=== PATIENT | female | born 1965 | race Caucasian/White ===

== ENCOUNTER 2019-01-02 14:28 | Emergency (ER) | payer OTHER ==
[~2019-01-02] VITALS: Ht 160 cm; Wt 100.7 kg
[~2019-01-02 14:28] MED LIST: ALBU90OI INH; AMOX500 PO; Albuterol2.5 MG/0.5 INH; BENZ100A PO; Cleocin HCl150 MG PO; ESTR2 PO; FISH1000 PO; Hair, Skin & N1 EACH PO; LOSA25 PO; Monodox100 MG PO; OMEPRAZOLE MAGN20 MG PO; OXYB5 PO; PRED10 PO; PROCODE120 PO; Pepcid40 MG PO; Prednisone20 MG PO; QVAR7.3 G1 IH; ZIPR20 PO; Zithromax250 MG PO
== END 2019-01-02 15:38 | disposition home or self-care (01) ==
LOC: ER 14:28
DX: S63.501A Unspecified sprain of right wrist, initial encounter (principal); E11.9 Type 2 diabetes mellitus without complications; J43.9 Emphysema, unspecified; F17.210 Nicotine dependence, cigarettes, uncomplicated; Z88.0 Allergy status to penicillin; Z88.8 Allergy status to other drugs, medicaments and biological substances; Z79.52 Long term (current) use of systemic steroids; Z79.899 Other long term (current) drug therapy; W18.39XA Other fall on same level, initial encounter
CPT/HCPCS: 29125; 73100; 99283-25; L3917

== ENCOUNTER → 2019-10-27 | Outpatient (CLI) | payer OTHER ==
[2019-10-27 18:38] LABS: BASOPHILS ABSOLUTE AUTO 0.07 K/mm3 (0.00-0.23); BASOPHILS PERCENT AUTO 1 % (0-2); EOSINOPHILS ABSOLUTE AUTO 0.15 K/mm3 (0.00-0.68); EOSINOPHILS PERCENT AUTO 2 % (0-6); Hemoglobin 14.2 g/dL (11.5-16.0); IMMATURE GRAN ABSOLUTE AUTO 0.01 K/mm3 (0.00-0.10); IMMATURE GRAN PERCENT AUTO 0 % (0-1); LYMPHOCYTES ABSOLUTE AUTO 2.45 K/mm3 (0.84-5.20); LYMPHOCYTES PERCENT AUTO 36 % (21-46); MONOCYTES ABSOLUTE AUTO 0.52 K/mm3 (0.16-1.47); MONOCYTES PERCENT AUTO 8 % (4-13); Mean Corpuscular HGB 27.5 pg (26.0-34.0); Mean Corpuscular Volume 83 fL (80-100); Mean Platelet Volume 11.4 fL (9.1-12.4); NEUTROPHILS ABSOLUTE AUTO 3.69 K/mm3 (1.96-9.15); NEUTROPHILS PERCENT AUTO 54 % (41-73); Platelet Count 296 K/mm3 (150-400); RDW Coefficient Variation 13.2 % (11.7-14.2); RDW Standard Deviation 40.1 fL (35.1-46.3); Red Blood Cell Count 5.16 M/mm3 (3.80-5.20); White Blood Cell Count 6.89 K/mm3 (4.00-11.30)
[2019-10-27 18:54] LABS: Alanine Aminotransfer (ALT/SGP 30 U/L (12-78); Albumin, Blood 4.2 g/dL (3.4-5.0); Alk Phos 108 U/L (40-126); Anion Gap 13 mmol/L (6-16); Aspartate Aminotrans (AST/SGOT 24 U/L (12-37); Bilirubin, Total 0.4 mg/dL (0.1-1.0); Blood Urea Nitrogen 11 mg/dL (8-24); Bun/Creatinine Ratio 13.9 (12.0-20.0); CO2, Blood 23 mmol/L (21-32); Calcium, Blood 9.7 mg/dL (8.5-10.1); Chloride, Blood 102 mmol/L (98-108); Creatinine, Blood 0.79 mg/dL (0.40-1.00); Globulin, Blood 4.4 g/dL (2.2-4.0); Glomerular Filtration Rate >60 (60-); Glucose, Blood 410 mg/dL (70-99); Potassium, Blood 3.8 mmol/L (3.5-5.5); Sodium, Blood 138 mmol/L (136-145); Thyroid Stimulating Hormone 1.392 uIU/mL (0.360-4.800); Total Protein, Blood 8.6 g/dL (6.4-8.2)
== END | disposition home or self-care (01) ==
LOC: LAB SHORT 18:34 → LAB EV 18:34
PROVIDERS: Physician Assistant Medical
DX: R73.9 Hyperglycemia, unspecified (principal); R53.83 Other fatigue
CPT/HCPCS: 80053; 83036; 84443; 84681; 85025

== ENCOUNTER → 2019-12-21 | Outpatient (CLI) | payer OTHER | END | disposition home or self-care (01) | LOC: LAB SHORT 19:13 → LAB 19:13 | DX: N39.0 Urinary tract infection, site not specified (principal) | CPT/HCPCS: 87086 ==

== ENCOUNTER 2021-09-29 00:57 | Emergency (ER) | payer OTHER ==
[~2021-09-29] VITALS: Ht 165.1 cm; Wt 91.2 kg
== END 2021-09-29 03:27 | disposition home or self-care (01) ==
LOC: ER 00:57
DX: M54.16 Radiculopathy, lumbar region (principal); E11.9 Type 2 diabetes mellitus without complications; J43.9 Emphysema, unspecified; F17.210 Nicotine dependence, cigarettes, uncomplicated; Z79.899 Other long term (current) drug therapy; Z88.0 Allergy status to penicillin; Z88.8 Allergy status to other drugs, medicaments and biological substances; Z79.52 Long term (current) use of systemic steroids; V48.1XXA Car passenger injured in noncollision transport accident in nontraffic accident, initial encounter; Y92.89 Other specified places as the place of occurrence of the external cause
CPT/HCPCS: A9270

== ENCOUNTER → 2023-10-21 | Outpatient (CLI) | payer OTHER | END | disposition home or self-care (01) | LOC: LAB 17:53 → LAB SHORT 17:53 | DX: Z00.00 Encounter for general adult medical examination without abnormal findings (principal); Z13.1 Encounter for screening for diabetes mellitus | CPT/HCPCS: 82043 ==

== ENCOUNTER → 2023-11-16 | Outpatient (CLI) | payer OTHER ==
[2023-11-19 20:22] LABS: APTIMA MEDIA TYPE Unisex Swab; C. TRACHOMATIS BY TMA Negative (Negative); N. GONORRHOEAE BY TMA Negative (Negative); SPECIMEN SOURCE Not Provided
== END ==
LOC: LAB SHORT 11:16 → LAB 11:16
PROVIDERS: Physician Assistant Surgical
DX: N39.0 Urinary tract infection, site not specified (principal)
CPT/HCPCS: 87086; 87491; 87591

== ENCOUNTER 2024-11-02 19:29 | Emergency (ER) | payer OTHER ==
[~2024-11-02] VITALS: Ht 162.6 cm; Wt 83.9 kg
[2024-11-02 20:52] LABS: BASOPHILS ABSOLUTE AUTO 0.08 K/mm3 (0.00-0.23); BASOPHILS PERCENT AUTO 1 % (0-2); EOSINOPHILS ABSOLUTE AUTO 0.17 K/mm3 (0.00-0.68); EOSINOPHILS PERCENT AUTO 2 % (0-6); Hematocrit 38.7 % (33.0-51.0); Hemoglobin 12.4 g/dL (11.5-16.0); IMMATURE GRAN ABSOLUTE AUTO 0.03 K/mm3 (0.00-0.10); IMMATURE GRAN PERCENT AUTO 0 % (0-1); LYMPHOCYTES ABSOLUTE AUTO 2.57 K/mm3 (0.84-5.20); LYMPHOCYTES PERCENT AUTO 24 % (21-46); MONOCYTES ABSOLUTE AUTO 0.63 K/mm3 (0.16-1.47); MONOCYTES PERCENT AUTO 6 % (4-13); Mean Corpuscular HGB Conc 32.0 g/dL (31.5-36.5); Mean Corpuscular Volume 85 fL (80-100); NEUTROPHILS ABSOLUTE AUTO 7.20 K/mm3 (1.96-9.15); NEUTROPHILS PERCENT AUTO 67 % (41-73); NRBC ABSOLUTE 0.00 K/mm3 (0.00-0.02); NRBC Auto 0.0 /100 WBC (0.0-0.2); Platelet Count 327 K/mm3 (150-400); RDW Coefficient Variation 13.4 % (11.7-14.2); RDW Standard Deviation 41.8 fL (35.1-46.3)
[2024-11-02 21:19] LABS: Alanine Aminotransfer (ALT/SGP 22.0 U/L (12-78); Albumin, Blood 3.8 g/dL (3.4-5.0); Albumin/Globulin Ratio 0.9 (0.8-1.8); Anion Gap 9.0 mmol/L (3-11); Aspartate Aminotrans (AST/SGOT 13.0 U/L (12-37); Bilirubin, Total 0.3 mg/dL (0.1-1.0); Blood Urea Nitrogen 14.0 mg/dL (8-24); CO2, Blood 24.0 mmol/L (21-32); Calcium, Blood 9.3 mg/dL (8.5-10.1); Chloride, Blood 109.0 mmol/L (98-108); Creatinine, Blood 0.61 mg/dL (0.40-1.00); Globulin, Blood 4.3 g/dL (2.2-4.0); Glucose, Blood 116.0 mg/dL (70-99); Potassium, Blood 3.8 mmol/L (3.5-5.5); Sodium, Blood 138.0 mmol/L (136-145); Total Protein, Blood 8.1 g/dL (6.4-8.2)
[2024-11-02] MEDS ORDERED: Ondansetron HCl 2 MG / ML 2ML Vial IV ONE (21:45)
[2024-11-02] MEDS ORDERED: FentaNYL Citrate 50 MCG/ML 2 ML Injection IV ONE (21:45)
[2024-11-02 22:23] LABS: Source, Urine Clean Catch
[2024-11-02 22:27] LABS: Bilirubin, Urine Neg (Neg); Glucose Qualitative, Urine Neg (Neg); Ketones, Urine Neg (Neg); Leukocyte Esterase, Urine Neg (Neg); Protein, Urine Neg (Neg); Specific Gravity, Urine 1.025 (1.003-1.022); Urobilinogen, Urine NORM (Normal)
[2024-11-02 22:30] VITALS: BP 131/63
[2024-11-02 22:32] LABS: Color, Urine Yellow (P-Yellow)
== END 2024-11-02 22:47 | disposition home or self-care (01) ==
LOC: ER 19:29
PROVIDERS: Student in an Organized Health Care Education/Training Program
DX: K80.20 Calculus of gallbladder without cholecystitis without obstruction (principal); J44.9 Chronic obstructive pulmonary disease, unspecified; E78.00 Pure hypercholesterolemia, unspecified; I10 Essential (primary) hypertension; F17.210 Nicotine dependence, cigarettes, uncomplicated; Z79.52 Long term (current) use of systemic steroids; Z79.899 Other long term (current) drug therapy; Z88.0 Allergy status to penicillin; Z88.8 Allergy status to other drugs, medicaments and biological substances
CPT/HCPCS: 76705; 80053; 81003; 83690; 85025; 93005; 93010; 96374; 96375; 99284-25; J2405; J3010

== ENCOUNTER 2025-01-06 07:14 | Day surgery (SDC) | payer OTHER ==
[2025-01-06] VITALS (13 sets, daily range): BP systolic 113–153; BP diastolic 57–92
[~2025-01-06] VITALS: Ht 162.6 cm; Wt 84.9 kg
[~2025-01-06 07:14] MED LIST changes: +ATOR40TA PO; -Albuterol2.5 MG/0.5 INH; +CeFAZolin Sodium 2,000 MG in NS 100 ML IV SCH; -LOSA25 PO; +LOSA50 PO; +METAMUCIL174 GM PO; +METF500 PO; +Norco 5-325 Ta1 EACH PO; +PANT40 PO; +TYLECOD3 PO
[2025-01-06] MEDS ORDERED: CeFAZolin Sodium 2,000 MG VIAL ONE (09:32)
[2025-01-06] MEDS ORDERED: Bupivacaine 0.5% HCl 5 MG/ML 30MLVIAL ONE (10:00)
[2025-01-06] MEDS ORDERED: FentaNYL Citrate 50 MCG/ML 2 ML Injection ONE ×2 (10:06→12:05)
[2025-01-06] MEDS ORDERED: Rocuronium Bromide 10 MG/ML 5ML Injection IV ONE (10:09)
[2025-01-06] MEDS ORDERED: Phenylephrine HCl 100 MCG/ML-NS 10MLSYR (1MG/10ML) ONE (10:13)
[2025-01-06] MEDS ORDERED: Ondansetron HCl 2 MG / ML 2ML Vial ONE (10:25)
[2025-01-06] MEDS ORDERED: Dexamethasone Sod Phos 10 MG/ML 1ML VIAL ONE (10:25)
[2025-01-06] MEDS ORDERED: Metoclopramide HCl 5MG / ML 2ML Vial IV PRN (11:10)
[2025-01-06] MEDS ORDERED: Albuterol 2.5 MG/3 ML VIAL INH PRN (11:10)
[2025-01-06] MEDS ORDERED: HYDROmorphone HCl/Pf 1MG SYR IV PRN ×2 (11:10)
[2025-01-06] MEDS ORDERED: FentaNYL Citrate 50 MCG/ML 2 ML Injection IV PRN (11:25)
[2025-01-06] MEDS ORDERED: Ketorolac Tromethamine 30mg Vial IV PRN (11:30)
--- NOTE | 2025-01-06 11:45 | NUR ---
PT TO PACU ON 8L NRB. TACHYPNEIC, [id number], UNABLE TO HEAR LUNG SOUNDS R/T VOCALIZATIONS. SURGICAL SITES ABDOMEN X4, STERIS DCI.
[2025-01-06] MEDS ORDERED: HYDROcodone 5-APAP 325 TAB PO PRN (11:50)
[2025-01-06] MEDS ORDERED: HYDROmorphone HCl/Pf 1MG SYR ONE (11:55)
[2025-01-06] MEDS ORDERED: Metoclopramide HCl 5MG / ML 2ML Vial ONE (11:58)
[2025-01-06] MEDS ORDERED: Ketorolac Tromethamine 30mg Vial ONE (12:01)
--- NOTE | 2025-01-06 13:27 | NUR ---
Discharge instructions reviewed with patient. Patient verbalizes understanding. Copy given to patient to take home. Dressing d/i, little dried blood on 2. 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 Patient States Post-Procedure ride home has been arranged. Discharged via wheelchair to private car for ride home.
== END 2025-01-06 13:30 | disposition home or self-care (01) ==
LOC: ORSCMMR 07:14 → ORD 07:30 → ORSCMMR 08:30
PROVIDERS: Surgery
PROC: 0FT44ZZ Resection of Gallbladder, Percutaneous Endoscopic Approach (ICD-10-PCS; principal; 2025-01-06 10:00)
DX: K80.20 Calculus of gallbladder without cholecystitis without obstruction (principal); I10 Essential (primary) hypertension; K21.9 Gastro-esophageal reflux disease without esophagitis; I62.9 Nontraumatic intracranial hemorrhage, unspecified; J45.909 Unspecified asthma, uncomplicated; B19.20 Unspecified viral hepatitis C without hepatic coma; E78.5 Hyperlipidemia, unspecified; E11.42 Type 2 diabetes mellitus with diabetic polyneuropathy; Z79.85 Long-term (current) use of injectable non-insulin antidiabetic drugs; F17.210 Nicotine dependence, cigarettes, uncomplicated; Z79.899 Other long term (current) drug therapy; Z79.84 Long term (current) use of oral hypoglycemic drugs
CPT/HCPCS: 82947; 88304; A9270; J0690; J1100; J1171; J1885; J2371; J2405; J2704; J2765; J3010; J7120

== ENCOUNTER → 2025-02-07 | Outpatient (CLI) | payer OTHER ==
[~2025-02-07] MED LIST changes: -CeFAZolin Sodium 2,000 MG in NS 100 ML IV SCH
[2025-02-07 11:19] LABS: BASOPHILS ABSOLUTE AUTO 0.06 K/mm3 (0.00-0.23); BASOPHILS PERCENT AUTO 0 % (0-2); EOSINOPHILS ABSOLUTE AUTO 0.09 K/mm3 (0.00-0.68); EOSINOPHILS PERCENT AUTO 1 % (0-6); Hematocrit 32.9 % (33.0-51.0); Hemoglobin 10.9 g/dL (11.5-16.0); IMMATURE GRAN ABSOLUTE AUTO 0.11 K/mm3 (0.00-0.10); IMMATURE GRAN PERCENT AUTO 1 % (0-1); LYMPHOCYTES ABSOLUTE AUTO 2.08 K/mm3 (0.84-5.20); LYMPHOCYTES PERCENT AUTO 13 % (21-46); MONOCYTES ABSOLUTE AUTO 1.11 K/mm3 (0.16-1.47); MONOCYTES PERCENT AUTO 7 % (4-13); Mean Corpuscular HGB Conc 33.1 g/dL (31.5-36.5); Mean Corpuscular Volume 81 fL (80-100); NEUTROPHILS ABSOLUTE AUTO 12.83 K/mm3 (1.96-9.15); NEUTROPHILS PERCENT AUTO 79 % (41-73); NRBC ABSOLUTE 0.00 K/mm3 (0.00-0.02); NRBC Auto 0.0 /100 WBC (0.0-0.2); Platelet Count 327 K/mm3 (150-400); RDW Coefficient Variation 13.2 % (11.7-14.2); RDW Standard Deviation 38.9 fL (35.1-46.3)
[2025-02-07 11:44] LABS: Alanine Aminotransfer (ALT/SGP 33.0 U/L (12-78); Albumin, Blood 3.3 g/dL (3.4-5.0); Albumin/Globulin Ratio 0.7 (0.8-1.8); Anion Gap 18.0 mmol/L (6-16); Aspartate Aminotrans (AST/SGOT 21.0 U/L (12-37); Bilirubin, Total 0.8 mg/dL (0.1-1.0); Blood Urea Nitrogen 7.0 mg/dL (8-24); CO2, Blood 23.0 mmol/L (21-32); Calcium, Blood 9.7 mg/dL (8.5-10.1); Chloride, Blood 102.0 mmol/L (98-108); Creatinine, Blood 0.69 mg/dL (0.40-1.00); Globulin, Blood 5.0 g/dL (2.2-4.0); Glucose, Blood 129.0 mg/dL (70-99); Potassium, Blood 3.4 mmol/L (3.5-5.5); Sodium, Blood 140.0 mmol/L (136-145); Total Protein, Blood 8.3 g/dL (6.4-8.2)
== END ==
LOC: LAB SHORT 11:16 → LAB 11:16
PROVIDERS: Family Medicine
DX: R50.9 Fever, unspecified (principal)
CPT/HCPCS: 80053; 85025

== ENCOUNTER 2025-04-18 05:30 | Emergency (ER) | payer OTHER ==
[~2025-04-18] VITALS: Ht 162.6 cm; Wt 85.7 kg
[2025-04-18] MEDS ORDERED: Proparacaine 0.5% Opth Soln 15 ML BTL RIGHTEYE ONE (06:35)
[2025-04-18] MEDS ORDERED: Prochlorperazine Edisylate 10 mg Vial IM ONE (07:25)
[2025-04-18] MEDS ORDERED: DiphenhydrAMINE HCl 50 MG/ML 1ML Vial IM ONE (07:25)
[2025-04-18 08:15] VITALS: BP 129/70
== END 2025-04-18 08:55 | disposition home or self-care (01) ==
LOC: ER 05:30
DX: H53.8 Other visual disturbances (principal); H57.11 Ocular pain, right eye; J44.9 Chronic obstructive pulmonary disease, unspecified; E11.9 Type 2 diabetes mellitus without complications; I10 Essential (primary) hypertension; E78.5 Hyperlipidemia, unspecified; K21.9 Gastro-esophageal reflux disease without esophagitis; F17.210 Nicotine dependence, cigarettes, uncomplicated; Z88.0 Allergy status to penicillin; Z88.8 Allergy status to other drugs, medicaments and biological substances; Z88.5 Allergy status to narcotic agent; Z91.041 Radiographic dye allergy status; Z79.84 Long term (current) use of oral hypoglycemic drugs; Z79.899 Other long term (current) drug therapy
CPT/HCPCS: 96372; 99283-25; A9270-GY; J0780; J1200